=== PATIENT | male | born 1955 | race Caucasian/White ===

== ENCOUNTER 2018-01-30 08:56 | Outpatient (CLI) | payer OTHER, SELFPAY ==
[2018-02-03 12:11] LABS: BCR/ABL1, p210 Result see interpretation; Specimen Type WHOLE BLOOD
== END 2018-01-30 09:16 ==
PROVIDERS: PCP Family Medicine; Visit Provider Internal Medicine Hematology & Oncology
DX: C92.10 Chronic myeloid leukemia, BCR/ABL-positive, not having achieved remission (principal)
CPT/HCPCS: 36415; 81206

== ENCOUNTER 2018-04-15 09:23 | Outpatient (CLI) | payer OTHER, SELFPAY ==
[2018-04-15 10:00] LABS: Abs Immature Grans 0.02 k/cumm (0.0-0.09); Absolute Basophil Count 0.03 k/cumm (0.0-0.2); Absolute Eosinophil Count 0.32 k/cumm (0.0-0.7); Absolute Lymphocyte Count 2.37 k/cumm (1.2-3.4); Absolute Monocyte Count 0.69 k/cumm (0.11-0.7); Absolute Neutrophil Count 6.03 k/cumm (1.2-6.7); Basophils % 0.3; Eosinophils % 3.4; HCT 42.1 % (40.0-50.0); HGB 14.4 g/dL (13.5-17.5); Immature Grans % 0.2; Lymphocytes % 25.1; Mean Corp. HGB Concentration 34.2 g/dL (32.0-36.0); Mean Corpuscular Hemoglobin 32.5 pg (27.0-33.0); Mean Platelet Volume 9.4 fL (8.0-11.0); Monocytes % 7.3; Neutrophils % 63.7; Platelet Count 163 x1000/uL (130-400); RBC 4.43 m/cumm (4.50-6.00); RBC Distribution Width 13.7 % (11.8-14.1); White Blood Cell Count 9.46 k/cumm (4.4-10.8)
[2018-04-15 10:34] LABS: ALT 28 U/L (12-78); AST 18 U/L (15-37); Albumin 3.4 g/dL (3.4-5.0); Alkaline Phosphatase 53 U/L (46-116); Anion Gap 8.7 mmol/L (3-11); BUN 18 mg/dL (7-18); Bilirubin, Total 0.7 mg/dL (0.2-1.0); CO2 25.3 mmol/L (21.0-32.0); CREATININE 1.35 mg/dL (0.70-1.30); Calcium 8.4 mg/dL (8.5-10.1); Chloride 106 mmol/L (98-107); Estimated GFR 53.21 (mL/min/1.73m2); Glucose 94 mg/dL (70-100); Potassium 4.2 mmol/L (3.5-5.1); Sodium 140 mmol/L (136-145)
[2018-04-15 11:51] LABS: Cholesterol 110 mg/dL (50-200); HDL Cholesterol 30 mg/dL (40-60); LDL CHOLESTEROL 59 mg/dL (<100); Triglyceride 127 mg/dL (30-150)
[2018-04-15 20:34] LABS: CRP, High Sensitivity 3.23 mg/L
[2018-05-13 10:54] LABS: Indication for Study See Comments
[2018-05-13 10:55] LABS: Specimen Type Peripheral blood
[2018-05-13 10:56] LABS: BCR-ABL1 p210 FusionTranscript See Comments
[2018-05-13 11:00] LABS: BCR-ABL1 Interpretation See Comments
== END 2018-04-15 09:43 ==
PROVIDERS: PCP Family Medicine; Visit Provider Internal Medicine Hematology & Oncology
DX: C92.10 Chronic myeloid leukemia, BCR/ABL-positive, not having achieved remission (principal); Z13.6 Encounter for screening for cardiovascular disorders
CPT/HCPCS: 36415; 80053; 80061; 81206; 83721; 86141; 85025

== ENCOUNTER 2018-08-19 13:28 | Outpatient (CLI) | payer OTHER, SELFPAY ==
[2018-08-19 13:53] LABS: Abs Immature Grans 0.02 k/cumm (0.0-0.09); Absolute Basophil Count 0.02 k/cumm (0.0-0.2); Absolute Eosinophil Count 0.29 k/cumm (0.0-0.7); Absolute Lymphocyte Count 1.74 k/cumm (1.2-3.4); Absolute Monocyte Count 0.53 k/cumm (0.11-0.7); Absolute Neutrophil Count 4.71 k/cumm (1.2-6.7); Basophils % 0.3; HCT 39.4 % (40.0-50.0); HGB 13.7 g/dL (13.5-17.5); Immature Grans % 0.3; Lymphocytes % 23.8; Mean Corp. HGB Concentration 34.8 g/dL (32.0-36.0); Mean Corpuscular Volume 94.9 fL (80-95); Mean Platelet Volume 9.3 fL (8.0-11.0); Monocytes % 7.3; Neutrophils % 64.3; Platelet Count 185 x1000/uL (130-400); RBC 4.15 m/cumm (4.50-6.00); RBC Distribution Width 14.4 % (11.8-14.1); White Blood Cell Count 7.31 k/cumm (4.4-10.8)
[2018-08-19 14:10] LABS: ALT 20 U/L (12-78); AST 17 U/L (15-37); Albumin 3.5 g/dL (3.4-5.0); Alkaline Phosphatase 55 U/L (46-116); Anion Gap 10.5 mmol/L (3-11); BUN 16 mg/dL (7-18); Bilirubin, Total 0.6 mg/dL (0.2-1.0); CO2 23.5 mmol/L (21.0-32.0); CREATININE 1.21 mg/dL (0.70-1.30); Calcium 8.8 mg/dL (8.5-10.1); Chloride 107 mmol/L (98-107); Glucose 90 mg/dL (70-100); Potassium 3.9 mmol/L (3.5-5.1); Sodium 141 mmol/L (136-145); Total Protein 6.9 g/dL (6.4-8.2)
[2018-08-28 14:40] LABS: Indication for Study See Comments
[2018-08-28 14:41] LABS: Specimen Type Peripheral blood
[2018-08-28 14:42] LABS: Limitations and Disclaimers See Comments
[2018-08-28 14:43] LABS: BCR-ABL1 p210 FusionTranscript See Comments
[2018-08-28 14:47] LABS: BCR-ABL1 Interpretation See Comments
== END 2018-08-19 13:48 ==
PROVIDERS: PCP Family Medicine; Visit Provider Nurse Practitioner Family
DX: C92.10 Chronic myeloid leukemia, BCR/ABL-positive, not having achieved remission (principal)
CPT/HCPCS: 36415; 80053; 81206; 85025

== ENCOUNTER 2018-12-07 13:00 | Outpatient (CLI) | payer OTHER, SELFPAY ==
[2018-12-07 13:27] LABS: Abs Immature Grans 0.07 k/cumm (0.0-0.09); Absolute Basophil Count 0.02 k/cumm (0.0-0.2); Absolute Eosinophil Count 0.33 k/cumm (0.0-0.7); Absolute Lymphocyte Count 2.12 k/cumm (1.2-3.4); Absolute Monocyte Count 0.82 k/cumm (0.11-0.7); Basophils % 0.2; Eosinophils % 2.9; HGB 13.8 g/dL (13.5-17.5); Immature Grans % 0.6; Lymphocytes % 18.7; Mean Corp. HGB Concentration 33.7 g/dL (32.0-36.0); Mean Corpuscular Hemoglobin 32.7 pg (27.0-33.0); Mean Corpuscular Volume 97.2 fL (80-95); Mean Platelet Volume 8.8 fL (8.0-11.0); Monocytes % 7.2; Neutrophils % 70.4; Platelet Count 212 x1000/uL (130-400); RBC 4.22 m/cumm (4.50-6.00); RBC Distribution Width 13.5 % (11.8-14.1); White Blood Cell Count 11.32 k/cumm (4.4-10.8)
[2018-12-07 13:34] LABS: Absolute Neutrophil Count 7.97 k/cumm (1.2-6.7)
[2018-12-07 14:59] LABS: ALT 18 U/L (16-63); AST 13 U/L (15-37); Albumin 3.3 g/dL (3.4-5.0); Alkaline Phosphatase 65 U/L (46-116); Anion Gap 12.7 mmol/L (3-11); BUN 15 mg/dL (7-18); Bilirubin, Total 0.4 mg/dL (0.2-1.0); CO2 24.3 mmol/L (21.0-32.0); Calcium 8.3 mg/dL (8.5-10.1); Chloride 105 mmol/L (98-107); Estimated GFR 46.97 (mL/min/1.73m2); Glucose 121 mg/dL (70-100); Potassium 3.8 mmol/L (3.5-5.1); Sodium 142 mmol/L (136-145); Total Protein 6.9 g/dL (6.4-8.2)
[2018-12-23 10:16] LABS: Indication for Study See Comments
[2018-12-23 10:17] LABS: Specimen Type Peripheral blood
[2018-12-23 10:19] LABS: BCR-ABL1 p210 FusionTranscript See Comments
[2018-12-23 10:26] LABS: BCR-ABL1 Interpretation See Comments
[2018-12-23 10:29] LABS: Limitations and Disclaimers See Comments
== END 2018-12-07 13:20 ==
PROVIDERS: PCP Family Medicine; Visit Provider Internal Medicine Hematology & Oncology
DX: C92.10 Chronic myeloid leukemia, BCR/ABL-positive, not having achieved remission (principal)
CPT/HCPCS: 36415; 80053; 81206; 85025

== ENCOUNTER 2019-05-17 10:37 | Outpatient (CLI) | payer OTHER, SELFPAY ==
[2019-05-17 11:34] LABS: Abs Immature Grans 0.06 k/cumm (0.0-0.09); Absolute Basophil Count 0.02 k/cumm (0.0-0.2); Absolute Eosinophil Count 0.29 k/cumm (0.0-0.7); Absolute Lymphocyte Count 1.51 k/cumm (1.2-3.4); Absolute Monocyte Count 1.07 k/cumm (0.11-0.7); Absolute Neutrophil Count 6.64 k/cumm (1.2-6.7); Basophils % 0.2; HCT 39.4 % (40.0-50.0); HGB 13.7 g/dL (13.5-17.5); Immature Grans % 0.6 %; Lymphocytes % 15.7; Mean Corp. HGB Concentration 34.8 g/dL (32.0-36.0); Mean Corpuscular Hemoglobin 33.4 pg (27.0-33.0); Mean Corpuscular Volume 96.1 fL (80-95); Mean Platelet Volume 9.5 fL (8.0-11.0); Monocytes % 11.2; Neutrophils % 69.3; Platelet Count 216 x1000/uL (130-400); RBC Distribution Width 13.6 % (11.8-14.1); White Blood Cell Count 9.59 k/cumm (4.4-10.8)
[2019-05-17 12:15] LABS: ALT 23 U/L (16-63); AST 14 U/L (15-37); Albumin 3.5 g/dL (3.4-5.0); Alkaline Phosphatase 59 U/L (46-116); Anion Gap 8.2 mmol/L (3-11); BUN 19 mg/dL (7-18); Bilirubin, Total 0.6 mg/dL (0.2-1.0); CO2 25.8 mmol/L (21.0-32.0); Calcium 8.7 mg/dL (8.5-10.1); Chloride 108 mmol/L (98-107); Glucose 92 mg/dL (74-106); Potassium 4.5 mmol/L (3.5-5.1); Sodium 142 mmol/L (136-145); Total Protein 6.7 g/dL (6.4-8.2)
[2019-06-03 10:16] LABS: Indication for Study See Comments; Specimen Type Peripheral blood
[2019-06-03 10:19] LABS: BCR-ABL1 Interpretation See Comments; BCR-ABL1 p210 FusionTranscript See Comments
[2019-06-03 10:21] LABS: Limitations and Disclaimers See Comments
== END 2019-05-17 10:57 ==
PROVIDERS: PCP Family Medicine; Visit Provider Internal Medicine Hematology & Oncology
DX: C92.10 Chronic myeloid leukemia, BCR/ABL-positive, not having achieved remission (principal)
CPT/HCPCS: 36415; 80053; 81206; 85025

== ENCOUNTER 2019-10-19 03:34 | Outpatient (CLI) | payer OTHER, SELFPAY ==
[2019-10-19 09:08] LABS: Abs Immature Grans 0.05 k/cumm (0.0-0.09); Absolute Basophil Count 0.02 k/cumm (0.0-0.2); Absolute Eosinophil Count 0.34 k/cumm (0.0-0.7); Absolute Lymphocyte Count 1.87 k/cumm (1.2-3.4); Absolute Monocyte Count 0.64 k/cumm (0.11-0.7); Absolute Neutrophil Count 4.34 k/cumm (1.2-6.7); Basophils % 0.3; Eosinophils % 4.7; HCT 40.8 % (40.0-50.0); HGB 14.2 g/dL (13.5-17.5); Immature Grans % 0.7 %; Lymphocytes % 25.8; Mean Corp. HGB Concentration 34.8 g/dL (32.0-36.0); Mean Corpuscular Hemoglobin 32.9 pg (27.0-33.0); Mean Corpuscular Volume 94.7 fL (80-95); Mean Platelet Volume 9.4 fL (8.0-11.0); Monocytes % 8.8; Neutrophils % 59.7; Platelet Count 198 x1000/uL (130-400); RBC 4.31 m/cumm (4.50-6.00); RBC Distribution Width 13.5 % (11.8-14.1); White Blood Cell Count 7.26 k/cumm (4.4-10.8)
[2019-10-19 09:29] LABS: ALT 30 U/L (16-63); AST 17 U/L (15-37); Albumin 3.5 g/dL (3.4-5.0); Alkaline Phosphatase 57 U/L (46-116); Anion Gap 9.4 mmol/L (3-11); BUN 17 mg/dL (7-18); Bilirubin, Total 0.5 mg/dL (0.2-1.0); CO2 23.6 mmol/L (21.0-32.0); CREATININE 1.25 mg/dL (0.70-1.30); Chloride 109 mmol/L (98-107); Estimated GFR 57.79 (mL/min/1.73m2); Glucose 101 mg/dL (74-106); Sodium 142 mmol/L (136-145); Total Protein 7.3 g/dL (6.4-8.2)
[2019-10-28 11:31] LABS: Indication for Study CML
[2019-10-28 11:32] LABS: Limitations and Disclaimers See Comments; Specimen Type Peripheral blood
[2019-10-28 11:33] LABS: BCR-ABL1 p210 FusionTranscript See Comments
[2019-10-28 11:35] LABS: BCR-ABL1 Interpretation See Comments
== END 2019-10-19 03:54 ==
PROVIDERS: PCP Family Medicine; Visit Provider Internal Medicine Hematology & Oncology
DX: C92.10 Chronic myeloid leukemia, BCR/ABL-positive, not having achieved remission (principal)
CPT/HCPCS: 36415; 80053; 81206; 85025

== ENCOUNTER 2020-03-01 15:21 | Outpatient (CLI) | payer OTHER, SELFPAY ==
[2020-03-01 15:50] LABS: Abs Immature Grans 0.04 10^3/uL (0.0-0.06); Absolute Basophil Count 0.04 10^3/uL (0.0-0.2); Absolute Eosinophil Count 0.26 10^3/uL (0.0-0.7); Absolute Lymphocyte Count 1.25 10^3/uL (1.2-3.4); Absolute Monocyte Count 0.69 10^3/uL (0.1-0.8); Absolute Neutrophil Count 4.76 10^3/uL (1.2-6.7); Basophils % 0.6; Eosinophils % 3.7; HCT 39.5 % (40.0-50.0); HGB 13.3 g/dL (13.5-17.5); Immature Grans % 0.6; Lymphocytes % 17.8; MCHC 33.7 % (32.0-36.0); MCV 95.2 fL (80-95); MPV 9.9 fL (8.0-11.0); Monocytes % 9.8; Neutrophils % 67.5; Nucleated RBC 0 %; Platelet Count 195 10^3/uL (130-400); RBC 4.15 10^6/uL (4.36-5.78); RDW-SD 45.1 fL; WBC 7.04 10^3/uL (4.4-10.8)
[2020-03-01 16:02] LABS: ALT 24 U/L (16-63); AST 14 U/L (15-37); Albumin 3.5 g/dL (3.4-5.0); Alkaline Phosphatase 58 U/L (46-116); BUN 15 mg/dL (7-18); Bilirubin, Total 0.6 mg/dL (0.2-1.0); CREATININE 1.44 mg/dL (0.70-1.30); Calcium 8.3 mg/dL (8.5-10.1); Chloride 107 mmol/L (98-107); Estimated GFR 49.08 (mL/min/1.73m2); Glucose 88 mg/dL (74-106); Potassium 3.8 mmol/L (3.5-5.1); Sodium 140 mmol/L (136-145)
[2020-03-08 11:24] LABS: Indication for Study See Comments
[2020-03-08 11:25] LABS: BCR-ABL1 p210 FusionTranscript See Comments; Specimen Type Peripheral blood
[2020-03-08 11:30] LABS: BCR-ABL1 Interpretation See Comments; Limitations and Disclaimers See Comments
== END 2020-03-01 15:41 ==
PROVIDERS: PCP Family Medicine; Visit Provider Internal Medicine Hematology & Oncology
DX: C92.10 Chronic myeloid leukemia, BCR/ABL-positive, not having achieved remission (principal)
CPT/HCPCS: 36415; 80053; 81206; 85025

== ENCOUNTER 2021-01-01 01:54 | Outpatient (CLI) | payer MEDICARE, SELFPAY ==
[2021-01-01 07:59] LABS: Abs Immature Grans 0.05 10^3/uL (0.0-0.06); Absolute Basophil Count 0.05 10^3/uL (0.0-0.2); Absolute Eosinophil Count 0.26 10^3/uL (0.0-0.7); Absolute Lymphocyte Count 1.67 10^3/uL (1.2-3.4); Absolute Monocyte Count 0.59 10^3/uL (0.1-0.8); Absolute Neutrophil Count 6.45 10^3/uL (1.2-6.7); Basophils % 0.6; Eosinophils % 2.9; HCT 44.9 % (40.0-50.0); HGB 14.9 g/dL (13.5-17.5); Immature Grans % 0.6; Lymphocytes % 18.4; MCHC 33.2 % (32.0-36.0); MCV 96.4 fL (80-95); MPV 9.4 fL (8.0-11.0); Monocytes % 6.5; Nucleated RBC 0 %; Platelet Count 180 10^3/uL (130-400); RBC 4.66 10^6/uL (4.36-5.78); WBC 9.07 10^3/uL (4.4-10.8)
[2021-01-01 08:21] LABS: ALT 23 U/L (16-63); AST 14 U/L (15-37); Albumin 3.5 g/dL (3.4-5.0); Alkaline Phosphatase 59 U/L (46-116); Anion Gap 7.1 mmol/L (3-11); BUN 15 mg/dL (7-18); Bilirubin, Total 0.6 mg/dL (0.2-1.0); CO2 28.9 mmol/L (21.0-32.0); CREATININE 1.4 mg/dL (0.70-1.30); Calcium 8.6 mg/dL (8.5-10.1); Chloride 108 mmol/L (98-107); Estimated GFR 50.55 (mL/min/1.73m2); Glucose 118 mg/dL (74-106); Potassium 3.8 mmol/L (3.5-5.1); Sodium 144 mmol/L (136-145)
[2021-01-17 15:03] LABS: Indication for Study CML
[2021-01-17 15:04] LABS: BCR-ABL1 p210 FusionTranscript See Comments; Limitations and Disclaimers See Comments
[2021-01-17 15:05] LABS: BCR-ABL1 Interpretation See Comments
== END 2021-01-01 01:55 | disposition home or self-care (01) ==
LOC: LBO 01:54
PROVIDERS: PCP Family Medicine; Visit Provider Internal Medicine Hematology & Oncology
DX: C92.10 Chronic myeloid leukemia, BCR/ABL-positive, not having achieved remission (principal)
CPT/HCPCS: 36415; 80053; 81206; 85025

== ENCOUNTER 2021-01-18 01:44 | Outpatient (RCR) | payer MEDICARE, SELFPAY ==
[2021-01-03] MEDS: Loratidine 10 MG TAB PO (09:06)
[2021-01-03] MEDS: Normal Saline Flush 10 ML SYR IVP (09:08)
[2021-01-03] MEDS: Acetaminophen 325 MG TAB 650 MG PO (09:08)
[2021-01-03] MEDS: VEDOLIZUMAB 300 MG in Normal Saline 250 ML 500 MG IVPB (09:28)
[2021-01-18 08:57] LABS: HCT 44.1 % (40.0-50.0); HGB 14.7 g/dL (13.5-17.5); MCH 31.4 pg (27.0-33.0); MCHC 33.3 % (32.0-36.0); MCV 94.2 fL (80-95); MPV 10.1 fL (8.0-11.0); Platelet Count 202 10^3/uL (130-400); RBC 4.68 10^6/uL (4.36-5.78); RDW 12.9 % (11.8-14.1); RDW-SD 44.1 fL; WBC 9.78 10^3/uL (4.4-10.8)
[2021-01-18 09:10] LABS: ALT 22 U/L (16-63); AST 20 U/L (15-37); Albumin 3.5 g/dL (3.4-5.0); Alkaline Phosphatase 59 U/L (46-116); Bilirubin, Direct 0.2 mg/dL (0.0-0.2); Bilirubin, Total 0.7 mg/dL (0.2-1.0); C-Reactive Protein 0.11 mg/dL (0.0-0.3); Total Protein 7.1 g/dL (6.4-8.2)
[2021-01-18] MEDS: Normal Saline Flush 10 ML SYR IVP (09:17)
[2021-01-18] MEDS: VEDOLIZUMAB 300 MG in Normal Saline 250 ML 500 MG IVPB (09:17)
== END 2021-01-21 23:59 | disposition home or self-care (01) ==
LOC: INF 01:44
PROVIDERS: PCP Family Medicine; Visit Provider Internal Medicine
DX: K50.90 Crohn's disease, unspecified, without complications (principal)
CPT/HCPCS: 36415; 80076; 85027; 96365; 86140; J3380

== ENCOUNTER 2021-02-14 02:15 | Outpatient (RCR) | payer MEDICARE, SELFPAY ==
[2021-02-14] MEDS: VEDOLIZUMAB 300 MG in Normal Saline 250 ML 500 MG IVPB (11:05)
[2021-02-14] MEDS: Normal Saline Flush 10 ML SYR IVP (11:50)
== END 2021-02-20 23:59 | disposition home or self-care (01) ==
LOC: INF 02:15
PROVIDERS: PCP Family Medicine; Visit Provider Internal Medicine
DX: K50.90 Crohn's disease, unspecified, without complications (principal); Z79.899 Other long term (current) drug therapy
CPT/HCPCS: 96365; J3380

== ENCOUNTER 2021-02-28 01:25 | Outpatient (RCR) | payer MEDICARE, SELFPAY ==
[2021-02-28 08:40] LABS: Abs Immature Grans 0.02 10^3/uL (0.0-0.06); Absolute Basophil Count 0.04 10^3/uL (0.0-0.2); Absolute Eosinophil Count 0.27 10^3/uL (0.0-0.7); Absolute Lymphocyte Count 1.43 10^3/uL (1.2-3.4); Absolute Monocyte Count 0.63 10^3/uL (0.1-0.8); Absolute Neutrophil Count 5.26 10^3/uL (1.2-6.7); Basophils % 0.5; Eosinophils % 3.5; HCT 44.6 % (40.0-50.0); HGB 14.8 g/dL (13.5-17.5); Immature Grans % 0.3; Lymphocytes % 18.7; MCH 31.4 pg (27.0-33.0); MCHC 33.2 % (32.0-36.0); MCV 94.7 fL (80-95); MPV 10.3 fL (8.0-11.0); Monocytes % 8.2; Neutrophils % 68.8; Nucleated RBC 0 %; Platelet Count 181 10^3/uL (130-400); RBC 4.71 10^6/uL (4.36-5.78); RDW-SD 45.4 fL; WBC 7.65 10^3/uL (4.4-10.8)
[2021-02-28 08:57] LABS: ALT 17 U/L (16-63); AST 19 U/L (15-37); Albumin 3.3 g/dL (3.4-5.0); Alkaline Phosphatase 53 U/L (46-116); Anion Gap 8.5 mmol/L (3-11); BUN 14 mg/dL (7-18); Bilirubin, Total 0.6 mg/dL (0.2-1.0); CO2 23.5 mmol/L (21.0-32.0); CREATININE 1.1 mg/dL (0.70-1.30); Calcium 8.5 mg/dL (8.5-10.1); Chloride 108 mmol/L (98-107); Glucose 103 mg/dL (74-106); Sodium 140 mmol/L (136-145); Total Protein 6.9 g/dL (6.4-8.2)
[2021-03-20 09:13] LABS: Indication for Study CML
[2021-03-20 09:16] LABS: Specimen Type Peripheral blood
[2021-03-20 09:19] LABS: BCR-ABL1 p210 FusionTranscript Negative
[2021-03-20 09:22] LABS: BCR-ABL1 Interpretation See Comments
[2021-03-20 09:24] LABS: Limitations and Disclaimers See Comments
== END 2021-03-23 23:59 | disposition home or self-care (01) ==
LOC: INF 01:25
PROVIDERS: PCP Family Medicine; Visit Provider Internal Medicine Hematology & Oncology
DX: C92.10 Chronic myeloid leukemia, BCR/ABL-positive, not having achieved remission (principal)
CPT/HCPCS: 36415; 80053; 81206; 85025

== ENCOUNTER 2021-04-06 07:30 | Outpatient (RCR) | payer MEDICARE, SELFPAY ==
[2021-04-06] MEDS: Normal Saline Flush 10 ML SYR IVP (07:37)
[2021-04-06 07:44] LABS: HCT 42.3 % (40.0-50.0); HGB 14.3 g/dL (13.5-17.5); MCH 31.7 pg (27.0-33.0); MCHC 33.8 % (32.0-36.0); MCV 93.8 fL (80-95); MPV 9.8 fL (8.0-11.0); Platelet Count 178 10^3/uL (130-400); RBC 4.51 10^6/uL (4.36-5.78); RDW-SD 44.5 fL; WBC 7.42 10^3/uL (4.4-10.8)
[2021-04-06 07:58] LABS: ALT 18 U/L (16-63); AST 15 U/L (15-37); Albumin 3.4 g/dL (3.4-5.0); Alkaline Phosphatase 54 U/L (46-116); Bilirubin, Direct 0.1 mg/dL (0.0-0.2); Bilirubin, Total 0.6 mg/dL (0.2-1.0); C-Reactive Protein 0.11 mg/dL (0.0-0.3); Total Protein 6.9 g/dL (6.4-8.2)
[2021-04-06] MEDS: VEDOLIZUMAB 300 MG in Normal Saline 250 ML 500 MG IVPB (08:08)
== END 2021-04-23 23:59 | disposition home or self-care (01) ==
LOC: INF 07:30
PROVIDERS: Family Medicine; PCP Family Medicine; Visit Provider Internal Medicine
DX: K50.90 Crohn's disease, unspecified, without complications (principal)
CPT/HCPCS: 36415; 80076; 85027; 96365; 86140; J3380

== ENCOUNTER 2021-05-01 02:06 | Outpatient (CLI) | payer MEDICARE, SELFPAY ==
[2021-05-01 08:05] LABS: Abs Immature Grans 0.03 10^3/uL (0.0-0.06); Absolute Basophil Count 0.03 10^3/uL (0.0-0.2); Absolute Eosinophil Count 0.29 10^3/uL (0.0-0.7); Absolute Lymphocyte Count 1.73 10^3/uL (1.2-3.4); Absolute Monocyte Count 0.71 10^3/uL (0.1-0.8); Absolute Neutrophil Count 5.05 10^3/uL (1.2-6.7); Basophils % 0.4; Eosinophils % 3.7; HCT 44.2 % (40.0-50.0); HGB 14.6 g/dL (13.5-17.5); Immature Grans % 0.4; Lymphocytes % 22.1; MCH 31.4 pg (27.0-33.0); MCV 95.1 fL (80-95); MPV 9.6 fL (8.0-11.0); Monocytes % 9.1; Neutrophils % 64.3; Nucleated RBC 0 %; Platelet Count 169 10^3/uL (130-400); RBC 4.65 10^6/uL (4.36-5.78); RDW 12.8 % (11.8-14.1); RDW-SD 44.3 fL; WBC 7.84 10^3/uL (4.4-10.8)
[2021-05-21 10:40] LABS: Indication for Study CML
[2021-05-21 10:43] LABS: BCR-ABL1 p210 FusionTranscript See Comments
[2021-05-21 10:44] LABS: BCR-ABL1 Interpretation See Comments; Limitations and Disclaimers See Comments
== END 2021-05-01 02:07 | disposition home or self-care (01) ==
LOC: LBO 02:07
PROVIDERS: PCP Family Medicine; Visit Provider Internal Medicine Hematology & Oncology
DX: C92.10 Chronic myeloid leukemia, BCR/ABL-positive, not having achieved remission (principal)
CPT/HCPCS: 36415; 81206; 85025

== ENCOUNTER 2021-06-01 03:17 | Outpatient (RCR) | payer MEDICARE, SELFPAY ==
[2021-06-01] MEDS: Loratidine 10 MG TAB (07:55)
[2021-06-01] MEDS: Normal Saline Flush 10 ML SYR IVP (07:56)
[2021-06-01] MEDS: Acetaminophen 325 MG TAB (07:56)
[2021-06-01] MEDS: VEDOLIZUMAB 300 MG in Normal Saline 250 ML 500 MG IVPB (08:41)
== END 2021-06-21 23:59 | disposition home or self-care (01) ==
LOC: INF 03:17
PROVIDERS: PCP Family Medicine; Visit Provider Internal Medicine
DX: K50.90 Crohn's disease, unspecified, without complications (principal)
CPT/HCPCS: 96365; J3380

== ENCOUNTER 2021-07-02 02:43 | Outpatient (CLI) | payer MEDICARE, SELFPAY ==
[2021-07-02 15:22] LABS: Abs Immature Grans 0.04 10^3/uL (0.0-0.06); Absolute Basophil Count 0.03 10^3/uL (0.0-0.2); Absolute Eosinophil Count 0.19 10^3/uL (0.0-0.7); Absolute Lymphocyte Count 1.61 10^3/uL (1.2-3.4); Absolute Monocyte Count 0.77 10^3/uL (0.1-0.8); Basophils % 0.3; Eosinophils % 2.1; HCT 39.9 % (40.0-50.0); HGB 13.4 g/dL (13.5-17.5); Immature Grans % 0.4; Lymphocytes % 17.8; MCH 32.2 pg (27.0-33.0); MCHC 33.6 % (32.0-36.0); MCV 95.9 fL (80-95); MPV 9.7 fL (8.0-11.0); Monocytes % 8.5; Neutrophils % 70.9; Nucleated RBC 0 %; Platelet Count 173 10^3/uL (130-400); RBC 4.16 10^6/uL (4.36-5.78); RDW 12.9 % (11.8-14.1); RDW-SD 45.2 fL; WBC 9.04 10^3/uL (4.4-10.8)
== END 2021-07-02 02:44 | disposition home or self-care (01) ==
LOC: LBO 02:43
PROVIDERS: PCP Family Medicine; Visit Provider Internal Medicine Hematology & Oncology
CPT/HCPCS: 36415; 81206; 85025

== ENCOUNTER 2021-07-20 01:46 | Outpatient (CLI) | payer MEDICARE, SELFPAY | END 2021-07-20 01:47 | disposition home or self-care (01) | LOC: LBO 01:46 | PROVIDERS: PCP Family Medicine; Visit Provider Internal Medicine Hematology & Oncology | CPT/HCPCS: 81206 ==

== ENCOUNTER 2021-07-24 02:04 | Outpatient (CLI) | payer MEDICARE, SELFPAY ==
--- OUTSIDE RECORDS SUMMARY | 2021-07-24 02:05 | XMS_ITS ---
:1955 Author Care Team Providers Name Role Phone RENE MACK MD Primary Care Provider [phone] Allergies Code Code System Name Reaction Severity Status Onset 671548 RxNorm Levaquin Itching ? Active ? 04566 RxNorm Mesalamine ? ? Active ? Notes: 01/02/21 verbal review Medications Name Status Start Date Stop Date ? ? acetaminophen 325 mg tablet Completed 03/15/201102/22 2 (two) Tablet: every four hours, as needed Aleve 220 mg tablet Completed 03/15/2011 04/01/2014 3 (three) Tablet: as needed allopurinol 300 mg tablet Completed 03/12/20162016 1 (one) Tablet Tablet: daily Ambien CR 12.5 mg tablet,extended release Completed 200509/23/2005 1 (one) Tablet ER: at bedtime amoxicillin 500 mg capsule Completed ? 03/05 amoxicillin 500 mg tablet Completed ? 2018 Take 4 tablets as needed by oral route. amoxicillin 875 mg tablet Completed ? 2017 amoxicillin 875 mg-potassium Completed ? clavulanate 125 mg tablet aspirin 81 mg tablet,delayed release Completed 03/20/2016 12/03/2016 1 (one) Tablet: once daily Aspirin Childrens 81 mg chewable tablet Completed 05/28/19 09 05/27/2008 1 (one) Tablet Chewable: daily ciprofloxacin 500 mg tablet Completed 09/04/201108/23 1 (one) Tablet: two times daily Flagyl 500 mg tablet Completed 09/04/2011 09/14/2011 1 Tablet: every 8 hours glucosamine jeff dipot-chond jeff sod-C-Mn 500 mg-400 mg-66 mg-3 mg cap Completed 11/13/2009 11/13/2009 1 (one) Capsule: daily hydrocodone 5 mg-acetaminophen 325 mg tablet Completed ? 01/02/2021 TAKE ONE TABLET BY MOUTH THREE TIMES A DAY NEEDED Kenalog 10 mg/mL suspension Completed 11/09/200710/22 for injection Lamisil 250 mg tablet Completed 10/30/2010 10/30/2010 1 (one) Tablet: daily Levaquin 750 mg tablet Completed 11/17/2007 8 1 (one) Tablet: Daily Lialda 1.2 gram tablet,delayed release Completed 0 03/09/[address]: daily with supper losartan 50 mg tablet Active ? Not availa ble TAKE ONE TABLET BY MOUTH EVERY DAY mercaptopurine 50 mg tablet Completed 09/04/201108/22 2 (two) Tablet: daily multivitamin capsule Completed 11/13/2009 11/13/2009 1 (one) Capsule: daily Nexium 40 mg capsule,delayed release Completed 11/01/2010 04/01/2014 1 (one) Cap DR: daily as needed ondansetron HCl 8 mg tablet Completed 12/04/201111/22 1 Tablet: every 8 hours oxycodone 5 mg tablet Completed ? 03/13/2020 pantoprazole 40 mg tablet,delayed release Unknown 2008 Not available 1 (one) Tablet DR: Daily to suppress acid Pentasa 250 mg capsule,controlled release Completed 200711/09/2007 4 Capsule ER: four times per day Plaquenil 200 mg tablet Unknown 06/01/2007 Not avai lable 1 (one) Tablet: Twice daily pravastatin 20 mg tablet Active ? Not sweta ilable TAKE ONE TABLET BY MOUTH EVERY DAY prednisone 10 mg tablet Completed 09/04/2011 09/14/19 12 1 (one) Tablet: See comments Sprycel 100 mg tablet Active ? Not availa ble Sprycel 140 mg tablet Active ? Not availa ble tamsulosin 0.4 mg capsule Completed ? 2020 TAKE ONE CAPSULE BY MOUTH EVERY DAY triamcinolone acetonide 0.1 % topical cream Active ? Not available APPLY A THIN LAYER TOPICALLY TO AFFECTED AREA S TWO TIMES A DA Y WelChol 3.75 gram oral powder packet Completed 08/08/2014 03/15/2015 1 (one) Packet Packet: DAILY MIXED IN LIQUID Zithromax Z-Srinivasan 250 mg tablet Completed 04/01/2014 1 Tablet: As directed Notes: 01/02/21 verbal review Problems Name Status Onset Date Source ? Chronic Myeloid Leukemia Active ? History Obesity Active ? History Leukocytosis Unknown ? History Psychophysiologic Insomnia Active ? Histo ry Thoracic Aortic Aneurysm without Rupture Active ? History Umbilical Hernia without Obstruction and Active ? History without Gangrene Crohn's Disease Active ? History Seborrheic Dermatitis of Scalp Unknown ? H istory Discoid Lupus Erythematosus Active ? Hist ory Abdominal Pain Unknown ? History Adult Health Examination Active ? History Screening for Cardiovascular System Disease Active ? History Screening Procedure Unknown ? History Procedure by Method Unknown ? History Inflammatory Disorder of Digestive Tract Unknown ? History Procedures Date Name Performed by ? 11/09/2020 Colonoscopy Information not avai lable 02/15/2008 Cholecystectomy Information not avai lable Notes: Laparoscopic ? Vasectomy Information not avai lable 03/23/2018 CT, Heart, W/o Contrast, W/ Coronary Dhm c [place] [address] (Work Place) 10/03/2020 XR, Abdomen [facility] Hospit al Radiology (Internal) [address] [place] [address] (Work Place) Results Lab Results Date Name Specimen Result Interpretation Description Value Range Status Address ? 10/03/2020 CBC W/ Auto BLD ? Wbc 7.2 10*3/uL 5.0-10.0 F inal [facility] Diff 10*3/uL Hospital Lab (Internal) : [address] ? ? BLD Low Rbc 4.45 4.60-6.00 Final [facility] ountry 10*6/uL 10*6/uL Hospital Lab (Internal) : [address] ? ? BLD ? Hgb 14.4 g/dL 14.0-18.0 Final [facility] g/dL Hospital L ab (Internal) : [address] ? ? BLD ? Hct 42.9 % 41.0-51.0 Final [facility] ount % Hospital L ab (Internal) : [address] ? ? BLD High Mcv 96.4 fL 80.0-96.0 Final [facility] fL Hospital L ab (Internal) : [address] ? ? BLD High Mch 32.4 pg 26.0-32.0 Final [facility] pg Hospital L ab (Internal) : [address] ? ? BLD ? Mchc 33.6 g/dL 31.0-35.0 Final [facility] Country g/dL Hospital L ab (Internal) : [address] ? ? BLD ? Rdw 12.9 % 11.5-14.5 Final [facility] % Hospital L ab (Internal) : [address] ? ? BLD ? Plt 208 10*3/uL 130-450 Final [facility] Country 10*3/uL Hospital Lab (Internal) : [address] ? ? BLD ? Anc 5.01 ? Final [facility] try 10*3/uL Hospital Lab (Internal) : [address] ? ? BLD High Nlr 3.85 0.00-3.20 Final [facility] Hospital L ab (Internal) : [address] ? ? BLD ? Neutro 69.8 % 40.0-75.0 Final [facility] % Hospital L ab (Internal) : [address] ? ? BLD Low Lymph 18.1 % 20.0-50.0 Final [facility] % Hospital L ab (Internal) : [address] ? ? BLD ? Webb 8.1 % 2.0-10.0 Final [facility] % Hospital L ab (Internal) : [address] ? ? BLD ? Eos 2.8 % 1.0-6.0 % Final [facility] Hospital L ab (Internal) : [address] ? ? BLD ? Baso 0.6 % 0.0-1.0 % Final [facility] Hospital L ab (Internal) : [address] ? ? BLD ? Ig 0.6 % 0.0-0.9 % Final [facility] L ab (Internal) : [address] 10/03/2020 CMP, Serum S ? g/r 103 mg/dL 74-106 Final [facility] or Plasma mg/dL Hospita l Lab (Internal) : [address] ? ? S ? Bun 19 mg/dL 9-20 Final [place] mg/dL Hospital L ab (Internal) : [address] ? ? S High Crea 1.30 mg/dL 0.66-1.25 Final [facility] Country mg/dL Hospital L ab (Internal) : [address] ? ? S ? Ca 9.3 mg/dL 8.4-10.2 Final [place] [facility] mg/dL Hospital L ab (Internal) : [address] ? ? S ? Na 141 mmol/L 137-145 Final [facility] mmol/L Hospital L ab (Internal) : [address] ? ? S ? K 4.6 mmol/L 3.5-5.1 Final [facility] mmol/L Hospital L ab (Internal) : [address] ? ? S High Cl 111 mmol/L 98-107 Final [facility] mmol/L Hospital L ab (Internal) : [address] ? ? S Low Tco2 21.0 mmol/L 22.0-30.0 Final No [facility] mmol/L Hospital L ab (Internal) : [address] ? ? S ? Tp 7.0 g/dL 6.3-8.2 Final [facility] ountry g/dL Hospital L ab (Internal) : [address] ? ? S ? Alb 4.0 g/dL 3.5-5.0 Final [facility] ountry g/dL Hospital L ab (Internal) : [address] ? ? S ? Tbil 0.6 mg/dL 0.2-1.3 Final [facility] mg/dL Hospital L ab (Internal) : [address] ? ? S ? Alp 54 U/L 38-126 Final [facility] try U/L Hospital L ab (Internal) : [address] ? ? S ? Alt 24 U/L 21-72 U/L Final [facility] ount (Sgpt) Hospital L ab (Internal) : [address] ? ? S ? Ast 23 U/L 17-59 U/L Final [facility] (S[facility]) Hospital L ab (Internal) : [address] 04/15/2018 CRP, High ? No ? ? ? [place] Sensitivity, observatio [place] Serum or n Regional Plasma recorded. Hospita l: [address], [place] 04/15/2018 Lipids, ? No ? ? ? [place] Total, Serum observatio [place] n Regional recorded. Hospita l Lab: [address], [place] 04/15/2018 CBC W/ Diff ? No ? ? ? N [place] observatio [facility] n Regional recorded. Hospita l: [address], [place] 12/03/2016 Urinalysis, UR ? UA-color pale yellow pale Final [facility] Reflex Micro (Int ernal): [address] ? ? UR ? UA-appear clear clear Final [facility] ab (Internal) : [address] ? ? UR ? UA-gluc negative negative Final [facility] ab (Internal) : [address] ? ? UR ? UA-bili negative negative Final [facility] ab (Internal) : [address] ? ? UR ? UA-ketone negative negative Final [facility] ab (Internal) : [address] ? ? UR ? UA-spec >1.030 1.003-1.0 Final [facility] Grav 35 Hospital L ab (Internal) : [address] ? ? UR ? UA-blood negative negative Final [facility] ab (Internal) : [address] ? ? UR ? UA-pH 5.5 [pH] 4.6-8.0 Final [facility] [pH] [facility] ab (Internal) : [address] ? ? UR ABNORMAL UA-prot 1+ negative Final [facility] (Internal) : [address] ? ? UR ? UA-urobil normal normal Final [facility] ab (Internal) : [address] ? ? UR ? UA-nitrit negative negative [facility] [address] ? ? UR ? UA-leuk negative negative Final [facility] Est Hospital L ab (Internal) : [address] 09/26/2016 Venipuncture BLD ? Venpn* ? ? Final [facility] Hospital L ab (Internal) : [address] 09/26/2016 Lactic Acid, S ? La 1.4 mmol/L 0.7-2.1 Fi nal [facility] Blood mmol/L Hospital L ab (Internal) : [address] 09/26/2016 Neutrophil BLD ? Anc-manua 4.66 ? Final [facility] Count, l 10*3/uL Hospital Lab Absolute (Interna l): (Anc), Blood [address] 09/26/2016 Differential BLD ? Polys 62 % 40-75 % Final [facility] , Manual, Hospita l Lab Blood (Internal) : [address] ? ? BLD ? Bands 0 % 0-5 % Final [facility] Hospital L ab (Internal) : [address] ? ? BLD Low Lymphs 15 % 20-50 % Final [facility] Hospital L ab (Internal) : [address] ? ? BLD High Webb 13 % 2-10 % Final [facility] Hospital L ab (Internal) : [address] ? ? BLD High Eos 8 % 0-6 % Final [facility] Hospital L ab (Internal) : [address] ? ? BLD ? Baso 0 % 0-1 % Final [facility] Hospital L ab (Internal) : [address] ? ? BLD ? Atyp 0 % ? Final [facility] Lymph Hospital L ab (Internal) : [address] ? ? BLD High Young 2 % 0-0 % Final [facility] Forms Hospital L ab (Internal) : [address] ? ? BLD ? Plts, adequate adequate Final [facility] Est. Hospital L ab (Internal) : [address] ? ? BLD ? RBC normal normal Final [facility] Morphology Hospit al Lab (Internal) : [address] 09/26/2016 CRP, High S High Rcrp 1.84 mg/dL 0.10-0.30 Fin al [place] Sensitivity, mg/dL Hosp ital Lab Serum or (Interna l): Plasma [address] 09/26/2016 ESR BLD High Esr 59 mm/h 0-20 mm/h Final No [facility]th [facility] (Erythrocyte Hosp ital Lab Sedimentatio (Int ernal): n Rate), [address] 09/26/2016 CMP, Serum S ? g/r 99 mg/dL 74-106 Final [place] or Plasma mg/dL Hospita l Lab (Internal) : [address] ? ? S ? Bun 14 mg/dL 9-20 Final [place] mg/dL Hospital L ab (Internal) : [address] ? ? S ? Crea 0.80 mg/dL 0.66-1.25 Final [place] mg/dL Hospital L ab (Internal) : [address] ? ? S ? Ca 8.6 mg/dL 8.4-10.2 Final [facility] mg/dL Hospital L ab (Internal) : [address] ? ? S ? Na 140 mmol/L 137-145 Final [place] [facility] mmol/L Hospital L ab (Internal) : [address] ? ? S ? K 4.1 mmol/L 3.5-5.1 Final [facility] mmol/L Hospital L ab (Internal) : [address] ? ? S ? Cl 107 mmol/L 98-107 Final [facility] mmol/L Hospital L ab (Internal) : [address] ? ? S ? Tco2 25.0 mmol/L 22.0-30.0 Final No [facility]th [facility] mmol/L Hospital L ab (Internal) : [address] ? ? S ? Tp 7.1 g/dL 6.3-8.2 Final [place] g/dL Hospital L ab (Internal) : [address] ? ? S ? Alb 3.5 g/dL 3.5-5.0 Final [place] g/dL Hospital L ab (Internal) : [address] ? ? S ? Tbil 0.6 mg/dL 0.2-1.3 Final [facility] mg/dL Hospital L ab (Internal) : [address] ? ? S ? Alp 60 U/L 38-126 Final [facility] try U/L Hospital L ab (Internal) : [address] ? ? S ? Alt 43 U/L 21-72 U/L Final [facility] (Sgpt) Hospital L ab (Internal) : [address] ? ? S ? Ast 27 U/L 17-59 U/L Final [facility] (Sgot) Hospital L ab (Internal) : [address] 09/26/2016 CBC W/ Auto BLD ? Wbc 7.5 10*3/uL 5.0-10.0 F inal [facility] Diff 10*3/uL Hospital Lab (Internal) : [address] ? ? BLD Low Rbc 3.70 4.60-6.00 [facility]*6[facility]uL Hospital Lab (Internal) : [address] ? ? BLD Low Hgb 12.1 g/dL 14.0-18.0 Final [facility] Country g/dL Hospital L ab (Internal) : [address] ? ? BLD Low Hct 35.5 % 41.0-51.0 Final [facility] % Hospital L ab (Internal) : [address] ? ? BLD ? Mcv 95.9 fL 80.0-96.0 Final [facility] fL Hospital L ab (Internal) : [address] ? ? BLD High Mch 32.7 pg 26.0-32.0 Final [facility] pg Hospital L ab (Internal) : [address] ? ? BLD ? Mchc 34.1 g/dL 31.0-35.0 Final [facility] Country g/dL Hospital L ab (Internal) : [address] ? ? BLD ? Rdw 13.9 % 11.5-14.5 Final [facility] ountry % Hospital L ab (Internal) : [address] ? ? BLD ? Plt 276 10*3/uL 130-450 Final [facility] 10*3/uL Hospital Lab (Internal) : [address] 06/10/2016 Venipuncture BLD ? Venpn* ? ? Final [facility] Hospital L ab (Internal) : [address] 06/10/2016 RBC BLD ? Aniso small ? Final [facility] Morphology, Hospi raeann Lab Blood (Internal) : [address] 06/10/2016 CMP, Serum S ? g/r 102 mg/dL 74-106 Final [facility] or Plasma mg/dL Hospita l Lab (Internal) : [address] ? ? S ? Bun 14 mg/dL 9-20 Final [facility] untry mg/dL Hospital L ab (Internal) : [address] ? ? S ? Crea 0.80 mg/dL 0.66-1.25 Final [facility] mg/dL Hospital L ab (Internal) : [address] ? ? S ? Ca 8.5 mg/dL 8.4-10.2 Final [facility] mg/dL Hospital L ab (Internal) : [address] ? ? S ? Na 139 mmol/L 137-145 Final [facility] mmol/L Hospital L ab (Internal) : [address] ? ? S ? K 4.3 mmol/L 3.5-5.1 Final [facility] mmol/L Hospital L ab (Internal) : [address] ? ? S ? Cl 105 mmol/L 98-107 Final [facility] mmol/L Hospital L ab (Internal) : [address] ? ? S ? Tco2 25.0 mmol/L 22.0-30.0 Final [facility] mmol/L Hospital L ab (Internal) : [address] ? ? S ? Tp 7.0 g/dL 6.3-8.2 Final [facility] ountry g/dL Hospital L ab (Internal) : [address] ? ? S ? Alb 3.9 g/dL 3.5-5.0 [facility] (Internal[facility] : [address] ? ? S ? Tbil 0.9 mg/dL 0.2-1.3 Final [facility] mg/dL Hospital L ab (Internal) : [address] ? ? S ? Alp 68 U/L 38-126 Final [facility] try U/L Hospital L ab (Internal) : [address] ? ? S ? Alt 31 U/L 21-72 U/L Final [facility] (pt) Hospital L ab (Internal) : [address] ? ? S ? Ast 24 U/L 17-59 U/L Final [facility] (Sgot) Hospital L ab (Internal) : [address] 06/10/2016 CBC W/ Auto BLD ? Wbc 9.6 10*3/uL 5.0-10.0 F inal [facility] Diff 10*3/uL Hospital Lab (Internal) : [address] ? ? BLD Low Rbc 4.24 4.60-6.00 Final [facility] 10*6/uL 10*6/uL Hospital Lab (Internal) : [address] ? ? BLD ? Hgb 14.1 g/dL 14.0-18.0 Final [facility] Country g/dL Hospital L ab (Internal) : [address] ? ? BLD Low Hct 40.8 % 41.0-51.0 Final [facility] % Hospital L ab (Internal) : [address] ? ? BLD High Mcv 96.2 fL 80.0-96.0 Final [facility] fL Hospital L ab (Internal) : [address] ? ? BLD High Mch 33.3 pg 26.0-32.0 Final [facility] pg Hospital L ab (Internal) : [address] ? ? BLD ? Mchc 34.6 g/dL 31.0-35.0 Final [facility] Country g/dL Hospital L ab (Internal) : [address] ? ? BLD High Rdw 15.7 % 11.5-14.5 Final [facility] % Hospital L ab (Internal) : [address] ? ? BLD ? Plt 192 10*3/uL 130-450 Final [facility] 10*3/uL Hospital Lab (Internal) : [address] ? ? BLD ? Anc 6.11 ? Final [facility] try 10*3/uL Hospital Lab (Internal) : [address] ? ? BLD ? Neutro 63.8 % 40.0-75.0 Final [facility] Hospital L ab (Internal) : [address] ? ? BLD Low Lymph 18.5 % 20.0-50.0 Final [facility] Hospital L ab (Internal) : [address] ? ? BLD ? Webb 9.4 % 2.0-10.0 Final [facility] Hospital L ab (Internal) : [address] ? ? BLD High Eos 7.4 % 1.0-6.0 % Final [facility] L ab (Internal) : [address] ? ? BLD ? Baso 0.6 % 0.0-1.0 % Final [facility] L ab (Internal) : [address] ? ? BLD ? Ig 0.3 % 0.0-0.9 % Final [facility] L ab (Internal) : [address] 06/03/2016 Venipuncture BLD ? Venpn* ? ? Final [facility] Hospital L ab (Internal) : [address] 06/03/2016 CMP, Serum S High g/r 122 mg/dL 74-106 Final [facility] or Plasma mg/dL Hospita l Lab (Internal) : [address] ? ? S ? Bun 15 mg/dL 9-20 Final [facility] mg/dL Hospital L ab (Internal) : [address] ? ? S ? Crea 0.90 mg/dL 0.66-1.25 Final [facility] mg/dL Hospital L ab (Internal) : [address] ? ? S ? Ca 8.6 mg/dL 8.4-10.2 Final [facility] mg/dL Hospital L ab (Internal) : [address] ? ? S ? Na 142 mmol/L 137-145 Final [facility] mmol/L Hospital L ab (Internal) : [address] ? ? S ? K 4.3 mmol/L 3.5-5.1 Final [facility] mmol/L Hospital L ab (Internal) : [address] ? ? S ? Cl 105 mmol/L 98-107 Final [facility] mmol/L Hospital L ab (Internal) : [address] ? ? S ? Tco2 29.0 mmol/L 22.0-30.0 Final No rth [facility] mmol/L Hospital L ab (Internal) : [address] ? ? S ? Tp 7.1 g/dL 6.3-8.2 Final [facility] ountry g/dL Hospital L ab (Internal) : [address] ? ? S ? Alb 4.0 g/dL 3.5-5.0 Final [facility] ountry g/dL Hospital L ab (Internal) : [address] ? ? S ? Tbil 0.8 mg/dL 0.2-1.3 Final [facility] mg/dL Hospital L ab (Internal) : [address] ? ? S ? Alp 69 U/L 38-126 Final [facility] try U/L Hospital L ab (Internal) : [address] ? ? S ? Alt 33 U/L 21-72 U/L Final [facility] (Sgpt) Hospital L ab (Internal) : [address] ? ? S ? Ast 21 U/L 17-59 U/L Final [facility] (Sgot) Hospital L ab (Internal) : [address] 06/03/2016 CBC W/ Auto BLD High Wbc 11.5 5.0-10.0 Final [facility] Diff 10*3/uL 10*3/uL Hospital Lab (Internal) : [address] ? ? BLD Low Rbc 4.39 4.60-6.00 Final [facility] 10*6/uL 10*6/uL Hospital Lab (Internal) : [address] ? ? BLD ? Hgb 14.7 g/dL 14.0-18.0 Final [facility] Country g/dL Hospital L ab (Internal) : [address] ? ? BLD ? Hct 42.3 % 41.0-51.0 Final [facility] ountry % Hospital L ab (Internal) : [address] ? ? BLD High Mcv 96.4 fL 80.0-96.0 Final [facility] fL Hospital L ab (Internal) : [address] ? ? BLD High Mch 33.5 pg 26.0-32.0 Final [facility] pg Hospital L ab (Internal) : [address] ? ? BLD ? Mchc 34.8 g/dL 31.0-35.0 Final [facility] Country g/dL Hospital L ab (Internal) : [address] ? ? BLD High Rdw 15.0 % 11.5-14.5 Final [facility] ountry % Hospital L ab (Internal) : [address] ? ? BLD ? Plt 199 10*3/uL 130-450 Final [facility] Country 10*3/uL Hospital Lab (Internal) : [address] ? ? BLD ? Anc 6.53 ? Final [facility] try 10*3/uL Hospital Lab (Internal) : [address] ? ? BLD ? Neutro 56.6 % 40.0-75.0 Final [facility] % Hospital L ab (Internal) : [address] ? ? BLD ? Lymph 25.8 % 20.0-50.0 Final [facility] ountry % Hospital L ab (Internal) : [address] ? ? BLD ? Webb 7.6 % 2.0-10.0 Final [facility] untry % Hospital L ab (Internal) : [address] ? ? BLD High Eos 9.1 % 1.0-6.0 % Final [facility] ount Hospital L ab (Internal) : [address] [place] [address] ? ? BLD ? Baso 0.6 % 0.0-1.0 % Final [facility] Hospital L ab (Internal) : [address] ? ? BLD ? Ig 0.3 % 0.0-0.9 % Final [facility] L ab (Internal) : [address] 05/22/2016 Venipuncture BLD ? Venpn* ? ? Final [facility] Hospital L ab (Internal) : [address] 05/22/2016 RBC BLD ? Aniso occasional ? Final [facility] Morphology, Hospi raeann Lab Blood (Internal) : [address] 05/22/2016 CMP, Serum S High g/r 149 mg/dL 74-106 Final [place] [facility] or Plasma mg/dL Hospita l Lab (Internal) : [address] ? ? S ? Bun 11 mg/dL 9-20 Final [facility] unt mg/dL Hospital L ab (Internal) : [address] ? ? S ? Crea 0.70 mg/dL 0.66-1.25 Final [facility] mg/dL Hospital L ab (Internal) : [address] ? ? S ? Ca 8.5 mg/dL 8.4-10.2 Final [facility] mg/dL Hospital L ab (Internal) : [address] ? ? S ? Na 142 mmol/L 137-145 Final [facility] mmol/L Hospital L ab (Internal) : [address] ? ? S ? K 4.0 mmol/L 3.5-5.1 Final [facility] mmol/L Hospital L ab (Internal) : [address] ? ? S ? Cl 106 mmol/L 98-107 Final [facility] mmol/L Hospital L ab (Internal) : [address] ? ? S ? Tco2 26.0 mmol/L 22.0-30.0 Final [facility] mmol/L Hospital L ab (Internal) : [address] ? ? S ? Tp 6.8 g/dL 6.3-8.2 Final [facility] ountry g/dL Hospital L ab (Internal) : [address] ? ? S ? Alb 3.8 g/dL 3.5-5.0 Final [facility] ountry g/dL Hospital L ab (Internal) : [address] ? ? S ? Tbil 0.6 mg/dL 0.2-1.3 Final [facility] mg/dL Hospital L ab (Internal) : [address] ? ? S ? Alp 67 U/L 38-126 Final [facility] try U/L Hospital L ab (Internal) : [address] [address] t ? ? S ? Alt 35 U/L 21-72 U/L Final [facility] ([facility] Hospital L ab (Internal) : [address] ? ? S ? Ast 28 U/L 17-59 U/L Final [facility] ([facility] Hospital L ab (Internal) : [address] t 05/22/2016 CBC W/ Auto BLD High Wbc 13.7 5.0-10.0 Final [facility] Diff 10*3/uL 10*3/uL Hospital Lab (Internal) : [address] ? ? BLD Low Rbc 4.12 4.60-6.00 Final [facility] ountry 10*6/uL 10*6/uL Hospital Lab (Internal) : [address] ? ? BLD Low Hgb 13.8 g/dL 14.0-18.0 Final [facility] g/dL Hospital L ab (Internal) : [address] ? ? BLD Low Hct 40.1 % 41.0-51.0 Final [facility] ount % Hospital L ab (Internal) : [address] t ? ? BLD High Mcv 97.3 fL 80.0-96.0 Final [facility] fL Hospital L ab (Internal) : [address] ? ? BLD High Mch 33.5 pg 26.0-32.0 Final [facility] pg Hospital L ab (Internal) : [address] t ? ? BLD ? Mchc 34.4 g/dL 31.0-35.0 Final [facility] Country g/dL Hospital L ab (Internal) : [address] ? ? BLD High Rdw 15.2 % 11.5-14.5 Final [facility] Hospital L ab (Internal) : [address] S[address] t ? ? BLD ? Plt 144 10*3/uL 130-450 Final [facility] Country 10*3/uL Hospital Lab (Internal) : [address] ? ? BLD ? Anc 7.75 ? Final [facility] try 10*3/uL Hospital Lab (Internal) : [address] t ? ? BLD ? Neutro 56.7 % 40.0-75.0 Final [facility] Hospital L ab (Internal) : [address] ? ? BLD ? Lymph 26.9 % 20.0-50.0 Final [facility] Hospital L ab (Internal) : [address] ? ? BLD ? Webb 8.1 % 2.0-10.0 Final [facility] Hospital L ab (Internal) : [address] ? ? BLD High Eos 7.4 % 1.0-6.0 % Final [facility] L ab (Internal) : [address] ? ? BLD ? Baso 0.6 % 0.0-1.0 % Final [facility] L ab (Internal) : [address] t ? ? BLD ? Ig 0.3 % 0.0-0.9 % Final [facility] L ab (Internal) : [address] 05/08/2016 Venipuncture BLD ? Venpn* ? ? Final [facility] Hospital L ab (Internal) : [address] 05/08/2016 RBC BLD ? Aniso small ? Final [facility] Morphology, Hospi raeann Lab Blood (Internal) : [address] 05/08/2016 CMP, Serum S High g/r 121 mg/dL 74-106 Final [facility] or Plasma mg/dL Hospita l Lab (Internal) : [address] ? ? S ? Bun 16 mg/dL 9-20 Final [facility] untry mg/dL Hospital L ab (Internal) : [address] ? ? S ? Crea 1.00 mg/dL 0.66-1.25 Final [facility] Country mg/dL Hospital L ab (Internal) : [address] ? ? S ? Ca 8.7 mg/dL 8.4-10.2 Final [facility] mg/dL Hospital L ab (Internal) : [address] t ? ? S ? Na 141 mmol/L 137-145 Final [facility] mmol/L Hospital L ab (Internal) : [address] ? ? S ? K 4.2 mmol/L 3.5-5.1 Final [facility] mmol/L Hospital L ab (Internal) : [address] ? ? S ? Cl 104 mmol/L 98-107 Final [facility] mmol/L Hospital L ab (Internal) : [address] ? ? S ? Tco2 26.0 mmol/L 22.0-30.0 Final [facility] mmol/L Hospital L ab (Internal) : [address] ? ? S ? Tp 7.2 g/dL 6.3-8.2 Final [facility] ountry g/dL Hospital L ab (Internal) : [address] ? ? S ? Alb 4.1 g/dL 3.5-5.0 Final [facility] ountry g/dL Hospital L ab (Internal) : [address] ? ? S ? Tbil 0.9 mg/dL 0.2-1.3 Final [facility] mg/dL Hospital L ab (Internal) : [address] ? ? S ? Alp 76 U/L 38-126 Final [facility] try U/L Hospital L ab (Internal) : [address] t ? ? S ? Alt 34 U/L 21-72 U/L Final [facility] ount ([facility]) Hospital L ab (Internal) : [address] t ? ? S ? Ast 20 U/L 17-59 U/L Final [facility] (Internal[facility] : [address] t 05/08/2016 CBC W/ Auto BLD High Wbc 10.2 5.0-10.0 Final [place] [facility] Diff 10*3/uL 10*3/uL Hospital Lab (Internal) : [address] ? ? BLD Low Rbc 4.13 4.60-6.00 Final [facility] ountry 10*6/uL 10*6/uL Hospital Lab (Internal) : [address] ? ? BLD Low Hgb 13.6 g/dL 14.0-18.0 Final [facility] g/dL Hospital L ab (Internal) : [address] ? ? BLD ? Hct 41.3 % 41.0-51.0 Final [facility] L ab (Internal[facility] : [address] ? ? BLD High Mcv 100.0 fL 80.0-96.0 Final [facility] fL Hospital L ab (Internal) : [address] ? ? BLD High Mch 32.9 pg 26.0-32.0 Final [facility] pg Hospital L ab (Internal) : [address] ? ? BLD ? Mchc 32.9 g/dL 31.0-35.0 Final [facility] g/dL Hospital L ab (Internal) : [address] ? ? BLD High Rdw 15.9 % 11.5-14.5 Final [facility] Hospital L ab (Internal) : [address] ? ? BLD ? Plt 210 10*3/uL 130-450 Final [facility] Country 10*3/uL Hospital Lab (Internal) : [address] ? ? BLD ? Anc 6.92 ? Final [facility] try 10*3/uL Hospital Lab (Internal) : [address] ? ? BLD ? Neutro 67.6 % 40.0-75.0 Final [facility] % Hospital L ab (Internal) : [address] ? ? BLD Low Lymph 18.9 % 20.0-50.0 Final [facility] ount % Hospital L ab (Internal) : [address] ? ? BLD ? Webb 7.1 % 2.0-10.0 Final [facility] Hospital L ab (Internal) : [address] ? ? BLD ? Eos 5.2 % 1.0-6.0 % Final [facility] L ab (Internal) : [address] ? ? BLD ? Baso 0.9 % 0.0-1.0 % Final [facility] L ab (Internal) : [address] ? ? BLD ? Ig 0.3 % 0.0-0.9 % Final [facility] L ab (Internal) : [address] Past Encounters 01/02/2021 Crohn's Disease; Kidney Stone; Chronic M yeloid Leukemia Deon Garcia MD: [address] [place] [address], Ph. 10/03/2020 Right Upper Quadrant Pain; Kidney Stone Ana M Freeman MD: [address] [place] [address], Ph. Social History Tobacco Smoking Status Never Smoker Vaccine List Vaccine Type COVID-19, mRNA, LNP-S, PF, 30 mcg/0.3 mL dose (Humble Bundle) 06/12/2020 07/07/2020 influenza, injectable, quadrivalent, pre servative free 03/20/2016?0.5 mL influenza, seasonal, injectable 12/10/2017 influenza, seasonal, injectable, preserv ative free 01/05/2008 pneumococcal conjugate PCV 13 03/20/2016?0.5 mL pneumococcal polysaccharide PPV23 05/27/2008 Td (adult), adsorbed 07/23/1999 zoster live 08/08/2014?0.65 mL Plan of Care Reminders Provider Appointments None ? ? recorded. Lab None ? ? recorded. Referral None ? ? recorded. Procedures None ? ? recorded. Surgeries None ? ? recorded. Imaging None ? ? recorded. Vitals 01/02/2021 08:00AM Office [facility] 40 Height Weight BMI Blood Pressure 171.45 cm 94.57 kg 32.2 kg/m2 118/74 mm[Hg] 10/03/2020 10:20AM Acute 20 Height Weight BMI Blood Pressure 171.45 cm 98.68 kg 33.6 kg/m2 134/84 mm[Hg] 12/08/2018 03:20PM Acute 20 Height Blood Pressure 175.26 cm 148/82 mm[Hg] 03/11/2018 11:20AM Follow Up 40 Height Weight BMI Blood Pressure 175.26 cm 105.64 kg 34.4 kg/m2 140/80 mm[Hg] 12/03/2016 Weight Blood Pressure 101.55 kg 118/64 mm[Hg] 09/26/2016 Weight Blood Pressure 100.25 kg 124/76 mm[Hg] 03/20/2016 Weight Blood Pressure 89.9 kg 112/58 mm[Hg] 03/05/2016 Weight Blood Pressure 93 kg 130/72 mm[Hg] 03/15/2015 Height Weight Blood Pressure 172.72 cm 103.92 kg 128/74 mm[Hg] 09/13/2014 Blood Pressure 120/80 mm[Hg] 08/08/2014 Height Weight Blood Pressure 172.72 cm 102.38 kg 130/82 mm[Hg] 04/01/2014 Weight Blood Pressure 103.06 kg 132/78 mm[Hg] 12/04/2011 Weight Blood Pressure 91.49 kg 134/86 mm[Hg] 09/04/2011 Height Weight Blood Pressure 172.72 cm 92.71 kg 106/62 mm[Hg] 04/25/2011 Height Weight Blood Pressure 172.72 cm 91.9 kg 126/74 mm[Hg] 03/15/2011 Height Weight Blood Pressure 172.72 cm 92.99 kg 116/80 mm[Hg] 02/07/2011 Height Weight Blood Pressure 172.72 cm 93.49 kg 112/76 mm[Hg] 11/07/2010 Height Weight Blood Pressure 172.72 cm 93.35 kg 108/74 mm[Hg] 10/30/2010 Height Weight Blood Pressure 172.72 cm 93.89 kg 120/70 mm[Hg] 03/09/2010 Weight Blood Pressure 98.84 kg (1) 112/70 mm[Hg] (2) 112/72 mm[Hg] 11/23/2009 Blood Pressure (1) 110/72 mm[Hg] (2) 110/70 mm[Hg] 11/17/2009 Weight Blood Pressure 95.84 kg 114/78 mm[Hg] 11/13/2009 Weight Blood Pressure 95.98 kg 106/72 mm[Hg] 06/14/2008 Weight Blood Pressure 89.36 kg 126/86 mm[Hg] 05/27/2008 Weight Blood Pressure 88.45 kg 96/70 mm[Hg] 03/10/2008 Weight Blood Pressure 92.99 kg 108/68 mm[Hg] 01/05/2008 Weight Blood Pressure 93.89 kg 108/68 mm[Hg] 11/27/2007 Weight Blood Pressure 90.72 kg 114/76 mm[Hg] 11/09/2007 Weight Blood Pressure 92.99 kg (1) 100/80 mm[Hg] (2) 98/58 mm[Hg] 12/04/2006 Weight Blood Pressure 102.51 kg 110/80 mm[Hg] 09/01/2006 Weight Blood Pressure 104.78 kg 128/80 mm[Hg] 11/22/2005 Weight Blood Pressure 105.23 kg 130/90 mm[Hg] 09/23/2005 Weight Blood Pressure 97.98 kg 108/70 mm[Hg] 08/23/2005 Weight Blood Pressure 104.78 kg 130/90 mm[Hg] 06/05/2004 Weight Blood Pressure 94.35 kg 120/90 mm[Hg] 03/09/2004 Weight Blood Pressure 104.33 kg 120/80 mm[Hg]
[2021-08-03 10:17] LABS: Indication for Study CML
[2021-08-03 10:18] LABS: Specimen Type Peripheral blood
[2021-08-03 10:19] LABS: BCR-ABL1 p210 FusionTranscript See Comments
[2021-08-03 10:26] LABS: BCR-ABL1 Interpretation See Comments; Limitations and Disclaimers See Comments
== END 2021-07-24 02:05 | disposition home or self-care (01) ==
LOC: LBO 02:04
PROVIDERS: PCP Family Medicine; Visit Provider Internal Medicine Hematology & Oncology
DX: C92.10 Chronic myeloid leukemia, BCR/ABL-positive, not having achieved remission (principal)
CPT/HCPCS: 81206

== ENCOUNTER 2021-07-27 01:50 | Outpatient (RCR) | payer MEDICARE, SELFPAY ==
[2021-07-27] MEDS: Normal Saline Flush 10 ML SYR IVP (08:14)
[2021-07-27 08:27] LABS: HCT 43.8 % (40.0-50.0); HGB 14.7 g/dL (13.5-17.5); MCHC 33.6 % (32.0-36.0); MCV 95 fL (80-95); MPV 10.1 fL (8.0-11.0); Platelet Count 154 10^3/uL (130-400); RBC 4.59 10^6/uL (4.36-5.78); RDW 12.7 % (11.8-14.1); RDW-SD 44.8 fL; WBC 7.07 10^3/uL (4.4-10.8)
[2021-07-27] MEDS: VEDOLIZUMAB 300 MG in Normal Saline 250 ML 500 MG IVPB (08:51)
[2021-07-27 09:34] LABS: ALT 17 U/L (16-63); AST 14 U/L (15-37); Albumin 2.8 g/dL (3.4-5.0); Alkaline Phosphatase 55 U/L (46-116); Bilirubin, Direct 0.2 mg/dL (0.0-0.2); Bilirubin, Total 0.9 mg/dL (0.2-1.0); C-Reactive Protein 0.65 mg/dL (0.0-0.3); Total Protein 5.9 g/dL (6.4-8.2)
== END 2021-08-21 23:59 | disposition home or self-care (01) ==
LOC: INF 01:50
PROVIDERS: PCP Family Medicine; Visit Provider Internal Medicine
DX: D50.9 Iron deficiency anemia, unspecified (principal)
CPT/HCPCS: 36415; 80076; 85027; 96365; 86140; J3380

== ENCOUNTER 2021-10-15 04:11 | Outpatient (CLI) | payer MEDICARE, SELFPAY | END 2021-10-15 04:12 | disposition home or self-care (01) | LOC: LBO 04:11 | PROVIDERS: PCP Family Medicine; Visit Provider Internal Medicine Hematology & Oncology ==

== ENCOUNTER 2021-10-17 03:46 | Outpatient (CLI) | payer MEDICARE, SELFPAY ==
[2021-10-17 13:16] LABS: Abs Immature Grans 0.05 10^3/uL (0.0-0.06); Absolute Basophil Count 0.07 10^3/uL (0.0-0.2); Absolute Eosinophil Count 0.26 10^3/uL (0.0-0.7); Absolute Lymphocyte Count 1.76 10^3/uL (1.2-3.4); Absolute Monocyte Count 0.69 10^3/uL (0.1-0.8); Absolute Neutrophil Count 6.69 10^3/uL (1.2-6.7); Basophils % 0.7; Eosinophils % 2.7; HCT 44.1 % (40.0-50.0); HGB 15.2 g/dL (13.5-17.5); Immature Grans % 0.5; Lymphocytes % 18.5; MCH 32.3 pg (27.0-33.0); MCHC 34.5 % (32.0-36.0); MCV 94 fL (80-95); MPV 9.6 fL (8.0-11.0); Monocytes % 7.2; Neutrophils % 70.4; Platelet Count 205 10^3/uL (130-400); RBC 4.71 10^6/uL (4.36-5.78); RDW 13.3 % (11.8-14.1); RDW-SD 45.5 fL; WBC 9.52 10^3/uL (4.4-10.8)
[2021-10-17 14:26] LABS: ALT 25 U/L (16-63); AST 15 U/L (15-37); Albumin 3.5 g/dL (3.4-5.0); Alkaline Phosphatase 80 U/L (46-116); Anion Gap 6.5 mmol/L (3-11); BUN 17 mg/dL (7-18); Bilirubin, Total 0.4 mg/dL (0.2-1.0); CO2 27.5 mmol/L (21.0-32.0); CREATININE 1.3 mg/dL (0.70-1.30); Calcium 8.4 mg/dL (8.5-10.1); Chloride 107 mmol/L (98-107); Glucose 88 mg/dL (74-106); Potassium 3.9 mmol/L (3.5-5.1); Sodium 141 mmol/L (136-145)
[2021-10-26 15:10] LABS: Indication for Study CML
[2021-10-26 15:11] LABS: Specimen Type Peripheral blood
[2021-10-26 15:12] LABS: BCR-ABL1 Interpretation See Comments; BCR-ABL1 p210 FusionTranscript See Comments
[2021-10-26 15:13] LABS: Limitations and Disclaimers See Comments
== END 2021-10-17 03:47 | disposition home or self-care (01) ==
PROVIDERS: PCP Family Medicine; Visit Provider Nurse Practitioner Adult Health
DX: C92.10 Chronic myeloid leukemia, BCR/ABL-positive, not having achieved remission (principal)
CPT/HCPCS: 36415; 80053; 81206; 85025

== ENCOUNTER 2022-01-02 02:10 | Outpatient (CLI) | payer MEDICARE, SELFPAY ==
[2022-01-02 07:20] LABS: Abs Immature Grans 0.04 10^3/uL (0.0-0.06); Absolute Basophil Count 0.05 10^3/uL (0.0-0.2); Absolute Eosinophil Count 0.33 10^3/uL (0.0-0.7); Absolute Lymphocyte Count 1.32 10^3/uL (1.2-3.4); Absolute Monocyte Count 0.81 10^3/uL (0.1-0.8); Absolute Neutrophil Count 6.37 10^3/uL (1.2-6.7); Basophils % 0.6; Eosinophils % 3.7; HCT 40.5 % (40.0-50.0); HGB 14.1 g/dL (13.5-17.5); Immature Grans % 0.4; Lymphocytes % 14.8; MCH 33.1 pg (27.0-33.0); MCHC 34.8 % (32.0-36.0); MCV 95 fL (80-95); MPV 9.8 fL (8.0-11.0); Monocytes % 9.1; Neutrophils % 71.4; Platelet Count 175 10^3/uL (130-400); RBC 4.26 10^6/uL (4.36-5.78); RDW 13.2 % (11.8-14.1); RDW-SD 46.1 fL; WBC 8.92 10^3/uL (4.4-10.8)
[2022-01-02 08:00] LABS: ALT 16 U/L (16-63); AST 14 U/L (15-37); Albumin 3.3 g/dL (3.4-5.0); Alkaline Phosphatase 69 U/L (46-116); Anion Gap 7.2 mmol/L (3-11); BUN 18 mg/dL (7-18); Bilirubin, Total 0.6 mg/dL (0.2-1.0); CO2 25.8 mmol/L (21.0-32.0); CREATININE 1.3 mg/dL (0.70-1.30); Calcium 8.7 mg/dL (8.5-10.1); Chloride 108 mmol/L (98-107); Estimated GFR 59.84 (mL/min/1.73m2); Glucose 109 mg/dL (74-106); Potassium 4.2 mmol/L (3.5-5.1); Sodium 141 mmol/L (136-145); Total Protein 6.7 g/dL (6.4-8.2)
[2022-01-10 09:10] LABS: Indication for Study CML
[2022-01-10 09:11] LABS: BCR-ABL1 p210 FusionTranscript See Comments; Limitations and Disclaimers See Comments; Specimen Type Peripheral blood
[2022-01-10 09:16] LABS: BCR-ABL1 Interpretation See Comments
== END 2022-01-02 02:11 | disposition home or self-care (01) ==
LOC: LBO 02:10
PROVIDERS: PCP Family Medicine; Visit Provider Internal Medicine Hematology & Oncology
DX: C92.10 Chronic myeloid leukemia, BCR/ABL-positive, not having achieved remission (principal)
CPT/HCPCS: 36415; 80053; 81206; 85025

== ENCOUNTER 2022-07-09 02:32 | Outpatient (CLI) | payer MEDICARE, SELFPAY ==
[2022-07-09 11:21] LABS: Abs Immature Grans 0.06 10^3/uL (0.0-0.06); Absolute Basophil Count 0.06 10^3/uL (0.0-0.2); Absolute Eosinophil Count 0.23 10^3/uL (0.0-0.7); Absolute Monocyte Count 0.62 10^3/uL (0.1-0.8); Absolute Neutrophil Count 5.92 10^3/uL (1.2-6.7); Basophils % 0.7; Eosinophils % 2.7; Immature Grans % 0.7; Lymphocytes % 19.8; MCH 33.3 pg (27.0-33.0); MCHC 34.8 % (32.0-36.0); MCV 96 fL (80-95); MPV 9.7 fL (8.0-11.0); Monocytes % 7.2; Neutrophils % 68.9; Platelet Count 197 10^3/uL (130-400); RDW 12.9 % (11.8-14.1); RDW-SD 46.2 fL; WBC 8.59 10^3/uL (4.4-10.8)
[2022-07-09 11:41] LABS: ALT 20 U/L (16-63); AST 13 U/L (15-37); Albumin 3.7 g/dL (3.4-5.0); Alkaline Phosphatase 68 U/L (46-116); Anion Gap 6.3 mmol/L (3-11); BUN 17 mg/dL (7-18); Bilirubin, Total 0.9 mg/dL (0.2-1.0); CO2 27.7 mmol/L (21.0-32.0); CREATININE 1.4 mg/dL (0.70-1.30); Calcium 8.8 mg/dL (8.5-10.1); Chloride 106 mmol/L (98-107); Estimated GFR 54.41 (mL/min/1.73m2); Glucose 108 mg/dL (74-106); Potassium 4.2 mmol/L (3.5-5.1); Sodium 140 mmol/L (136-145); Total Protein 7.4 g/dL (6.4-8.2)
[2022-07-11 14:59] LABS: BCR-ABL1 p210 FusionTranscript See Comments; Indication for Study See Comments; Specimen Type Blood
[2022-07-11 15:00] LABS: BCR-ABL1 Interpretation See Comments; Limitations and Disclaimers See Comments
== END 2022-07-09 02:33 | disposition home or self-care (01) ==
PROVIDERS: PCP Family Medicine; Visit Provider Nurse Practitioner Adult Health
DX: C92.10 Chronic myeloid leukemia, BCR/ABL-positive, not having achieved remission (principal)
CPT/HCPCS: 36415; 80053; 81206; 85025

== ENCOUNTER 2022-10-10 02:33 | Outpatient (CLI) | payer MEDICARE, SELFPAY ==
[2022-10-10 10:21] LABS: Abs Immature Grans 0.05 10^3/uL (0.0-0.06); Absolute Basophil Count 0.06 10^3/uL (0.0-0.2); Absolute Monocyte Count 0.58 10^3/uL (0.1-0.8); Absolute Neutrophil Count 4.94 10^3/uL (1.2-6.7); Basophils % 0.8; HCT 46.3 % (40.0-50.0); HGB 15.4 g/dL (13.5-17.5); Immature Grans % 0.7; Lymphocytes % 20.2; MCH 32.2 pg (27.0-33.0); MCHC 33.3 % (32.0-36.0); MCV 97 fL (80-95); MPV 9.6 fL (8.0-11.0); Monocytes % 7.8; Neutrophils % 66.5; Platelet Count 204 10^3/uL (130-400); RBC 4.78 10^6/uL (4.36-5.78); RDW 12.9 % (11.8-14.1); RDW-SD 46.3 fL; WBC 7.43 10^3/uL (4.4-10.8)
[2022-10-10 10:51] LABS: ALT 19 U/L (16-63); AST 12 U/L (15-37); Albumin 3.4 g/dL (3.4-5.0); Alkaline Phosphatase 65 U/L (46-116); Anion Gap 9.6 mmol/L (3-11); BUN 12 mg/dL (7-18); Bilirubin, Total 0.6 mg/dL (0.2-1.0); CO2 24.4 mmol/L (21.0-32.0); CREATININE 1.1 mg/dL (0.70-1.30); Calcium 8.3 mg/dL (8.5-10.1); Chloride 109 mmol/L (98-107); Estimated GFR 72.67 (mL/min/1.73m2); Glucose 97 mg/dL (74-106); Potassium 4.4 mmol/L (3.5-5.1); Sodium 143 mmol/L (136-145); Total Protein 6.9 g/dL (6.4-8.2)
[2022-10-14 12:52] LABS: Indication for Study Not Provided; Specimen Type Blood
[2022-10-14 12:53] LABS: BCR-ABL1 p210 FusionTranscript See Comments
[2022-10-14 12:55] LABS: BCR-ABL1 Interpretation See Comments
[2022-10-14 12:58] LABS: Limitations and Disclaimers See Comments
== END 2022-10-10 02:34 | disposition home or self-care (01) ==
LOC: LBO 02:34
PROVIDERS: PCP Family Medicine; Visit Provider Internal Medicine Hematology & Oncology
DX: C92.10 Chronic myeloid leukemia, BCR/ABL-positive, not having achieved remission (principal)
CPT/HCPCS: 36415; 80053; 81206; 85025

== ENCOUNTER 2023-10-08 03:56 | Outpatient (CLI) | payer MEDICARE, SELFPAY ==
[2023-10-08 14:41] LABS: Abs Immature Grans 0.04 10^3/uL (0.0-0.06); Absolute Basophil Count 0.04 10^3/uL (0.0-0.2); Absolute Eosinophil Count 0.27 10^3/uL (0.0-0.7); Absolute Lymphocyte Count 1.53 10^3/uL (1.2-3.4); Absolute Monocyte Count 0.55 10^3/uL (0.1-0.8); Basophils % 0.5 %; Eosinophils % 3.6 %; HCT 44.9 % (40.0-50.0); HGB 15.4 g/dL (13.5-17.5); Immature Grans % 0.5 %; Lymphocytes % 20.3 %; MCH 33.2 pg (27.0-33.0); MCHC 34.3 % (32.0-36.0); MCV 97 fL (80-95); MPV 9.8 fL (8.0-11.0); Monocytes % 7.3 %; Neutrophils % 67.8 %; Platelet Count 170 10^3/uL (130-400); RBC 4.64 10^6/uL (4.36-5.78); RDW 12.7 % (11.8-14.1); RDW-SD 45.1 fL; WBC 7.53 10^3/uL (4.4-10.8)
[2023-10-08 14:57] LABS: ALT 21 U/L (16-63); AST 11 U/L (15-37); Albumin 3.3 g/dL (3.4-5.0); Alkaline Phosphatase 59 U/L (46-116); Anion Gap 9.1 mmol/L (3-11); BUN 15 mg/dL (7-18); Bilirubin, Total 0.52 mg/dL (0.2-1.0); CO2 23.9 mmol/L (21.0-32.0); CREATININE 1.3 mg/dL (0.70-1.30); Calcium 8.5 mg/dL (8.5-10.1); Chloride 109 mmol/L (98-107); Glucose 103 mg/dL (74-106); Potassium 3.9 mmol/L (3.5-5.1); Sodium 142 mmol/L (136-145); Total Protein 6.6 g/dL (6.4-8.2)
[2023-10-13 15:01] LABS: Specimen Type Blood
[2023-10-13 15:33] LABS: Indication for Study CML
[2023-10-13 15:35] LABS: BCR-ABL1 Interpretation See Comments; BCR-ABL1 p210 FusionTranscript See Comments
[2023-10-13 15:38] LABS: Limitations and Disclaimers See Comments
== END 2023-10-08 03:57 | disposition home or self-care (01) ==
LOC: LBO 03:56
PROVIDERS: PCP Family Medicine; Visit Provider Nurse Practitioner Adult Health
DX: C92.10 Chronic myeloid leukemia, BCR/ABL-positive, not having achieved remission (principal)
CPT/HCPCS: 36415; 80053; 81206; 85025

== ENCOUNTER 2024-03-10 04:17 | Outpatient (CLI) | payer MEDICARE, SELFPAY ==
[2024-03-10 07:47] LABS: Abs Immature Grans 0.04 10^3/uL (0.0-0.06); Absolute Basophil Count 0.05 10^3/uL (0.0-0.2); Absolute Eosinophil Count 0.27 10^3/uL (0.0-0.7); Absolute Lymphocyte Count 2.03 10^3/uL (1.2-3.4); Absolute Monocyte Count 0.69 10^3/uL (0.1-0.8); Absolute Neutrophil Count 5.53 10^3/uL (1.2-6.7); Basophils % 0.6 %; Eosinophils % 3.1 %; HCT 46.4 % (40.0-50.0); Immature Grans % 0.5 %; Lymphocytes % 23.6 %; MCH 32.9 pg (27.0-33.0); MCHC 34.5 % (32.0-36.0); MCV 96 fL (80-95); MPV 9.9 fL (8.0-11.0); Neutrophils % 64.2 %; Platelet Count 195 10^3/uL (130-400); RBC 4.86 10^6/uL (4.36-5.78); RDW-SD 45.4 fL; WBC 8.61 10^3/uL (4.4-10.8)
[2024-03-10 08:04] LABS: ALT 20 U/L (16-63); AST 15 U/L (15-37); Albumin 3.4 g/dL (3.4-5.0); Alkaline Phosphatase 62 U/L (46-116); Anion Gap 11.6 mmol/L (3-11); BUN 15 mg/dL (7-18); Bilirubin, Total 0.88 mg/dL (0.2-1.0); CO2 23.4 mmol/L (21.0-32.0); CREATININE 1.5 mg/dL (0.70-1.30); Calcium 8.6 mg/dL (8.5-10.1); Chloride 110 mmol/L (98-107); Estimated GFR 49.77 (mL/min/1.73m2); Glucose 155 mg/dL (74-106); Sodium 145 mmol/L (136-145); Total Protein 7.1 g/dL (6.4-8.2)
[2024-03-12 08:33] LABS: Indication for Study CML; Specimen Type Whole Blood
[2024-03-12 09:17] LABS: BCR-ABL1 p210 FusionTranscript See Comments
[2024-03-12 09:22] LABS: BCR-ABL1 Interpretation See Comments
[2024-03-12 09:24] LABS: Limitations and Disclaimers See Comments
== END 2024-03-10 04:18 | disposition home or self-care (01) ==
PROVIDERS: PCP Family Medicine; Visit Provider Nurse Practitioner Adult Health
DX: C92.10 Chronic myeloid leukemia, BCR/ABL-positive, not having achieved remission (principal)
CPT/HCPCS: 36415; 80053; 81206; 85025

== ENCOUNTER 2024-10-05 03:38 | Outpatient (CLI) | payer MEDICARE, SELFPAY ==
[2024-10-05 09:04] LABS: Abs Immature Grans 0.04 10^3/uL (0.0-0.06); HCT 46.6 % (40.0-50.0); HGB 16.1 g/dL (13.5-17.5); Immature Grans % 0.4 %; MCH 33.5 pg (27.0-33.0); MCHC 34.5 % (32.0-36.0); MCV 97 fL (80-95); MPV 10.3 fL (8.0-11.0); Platelet Count 175 10^3/uL (130-400); RBC 4.81 10^6/uL (4.36-5.78); RDW 13.0 % (11.8-14.1); RDW-SD 46.5 fL; WBC 9.09 10^3/uL (4.4-10.8)
[2024-10-05 09:17] LABS: ALT 25 U/L (16-63); AST 17 U/L (15-37); Albumin 3.6 g/dL (3.4-5.0); Alkaline Phosphatase 68 U/L (46-116); Anion Gap 11.6 mmol/L (3-11); BUN 16 mg/dL (7-18); Bilirubin, Total 0.7 mg/dL (0.2-1.0); CO2 22.4 mmol/L (21.0-32.0); Calcium 8.7 mg/dL (8.5-10.1); Chloride 108 mmol/L (98-107); Estimated GFR 64.65 (mL/min/1.73m2); Glucose 93 mg/dL (74-106); Potassium 3.7 mmol/L (3.5-5.1); Sodium 142 mmol/L (136-145); Total Protein 6.8 g/dL (6.4-8.2)
[2024-10-07 14:46] LABS: %BCR-ABL1 Not Detected; BCR-ABL1 Molecular Response Not Detected; BCR-ABL1 p210 FusionTranscript Not Detected (NotDetected)
== END 2024-10-05 03:39 | disposition home or self-care (01) ==
PROVIDERS: PCP Family Medicine; Visit Provider Nurse Practitioner Adult Health
DX: C92.10 Chronic myeloid leukemia, BCR/ABL-positive, not having achieved remission (principal)
CPT/HCPCS: 36415; 80053; 81206; 85025

== ENCOUNTER 2024-11-24 08:01 | Outpatient (CLI) | payer MEDICARE, SELFPAY ==
--- NOTE | 2024-11-24 08:00 | RT.EKG_ITS ---
APPROVED REPORT Exam: Resting ECG Reason for Exam: PRE-OP Patient Location: O HR:65 bpm ECG Measurements Heart Rate 65 AXIS WA 182 P 5 QRSd 106 QRS -43 QT 429 T -11 QTc 447 Conclusion Sinus rhythm...normal P axis, V-rate 50- 99 Left anterior fascicular block...axis(240,-40), init forces inf
== END 2024-11-24 08:02 | disposition home or self-care (01) ==
PROVIDERS: PCP Family Medicine; Visit Provider Nurse Practitioner Adult Health
DX: Z01.818 Encounter for other preprocedural examination (principal)
CPT/HCPCS: 93005; 93010

== ENCOUNTER 2024-11-24 14:58 | Outpatient (CLI) | payer MEDICARE, SELFPAY ==
[2024-11-24 08:39] LABS: Abs Immature Grans 0.05 10^3/uL (0.0-0.06); HCT 42.8 % (40.0-50.0); HGB 14.6 g/dL (13.5-17.5); Immature Grans % 0.7 %; MCH 32.6 pg (27.0-33.0); MCHC 34.1 % (32.0-36.0); MCV 96 fL (80-95); MPV 9.6 fL (8.0-11.0); Platelet Count 180 10^3/uL (130-400); RBC 4.48 10^6/uL (4.36-5.78); RDW 13.0 % (11.8-14.1); RDW-SD 45.6 fL; WBC 7.63 10^3/uL (4.4-10.8)
[2024-11-24 09:09] LABS: ALT 19 U/L (16-63); AST 14 U/L (15-37); Albumin 3.5 g/dL (3.4-5.0); Alkaline Phosphatase 58 U/L (46-116); Anion Gap 8.7 mmol/L (3-11); BUN 16 mg/dL (7-18); Bilirubin, Total 0.7 mg/dL (0.2-1.0); CO2 26.3 mmol/L (21.0-32.0); Calcium 8.8 mg/dL (8.5-10.1); Chloride 111 mmol/L (98-107); Estimated GFR 64.65 (mL/min/1.73m2); Glucose 101 mg/dL (74-106); INR 1.0 (0.9-1.1); PTT Activated 24.3 sec (20.6-30.2); Potassium 4.0 mmol/L (3.5-5.1); Prothrombin Time 9.9 sec (9.1-11.1); Sodium 146 mmol/L (136-145); Total Protein 6.8 g/dL (6.4-8.2)
== END 2024-11-24 14:59 | disposition home or self-care (01) ==
LOC: LBO 14:58
PROVIDERS: PCP Family Medicine; Visit Provider Nurse Practitioner Adult Health
DX: Z01.818 Encounter for other preprocedural examination (principal); R79.1 Abnormal coagulation profile; Z01.812 Encounter for preprocedural laboratory examination
CPT/HCPCS: 36415; 80053; 85025; 85610; 85730; 93005

== ENCOUNTER 2025-03-10 08:11 | Outpatient (CLI) | payer MEDICARE, SELFPAY ==
[2025-03-10 12:19] LABS: Chloride 111 mmol/L (98-107); Potassium 3.7 mmol/L (3.5-5.1); Sodium 146 mmol/L (136-145)
[2025-03-10 12:21] LABS: CO2 24.4 mmol/L (20.0-31.0)
[2025-03-10 12:26] LABS: BUN 16 mg/dL (9-23); Calcium 8.7 mg/dL (8.3-10.6); Glucose 96 mg/dL (74-106); Total Protein 7.2 g/dL (5.7-8.2)
[2025-03-10 12:28] LABS: Albumin 4.2 g/dL (3.2-5.0); Alkaline Phosphatase 61 U/L (46-116); Bilirubin, Total 0.8 mg/dL (0.2-1.2)
[2025-03-10 12:29] LABS: ALT 14 U/L (10-49); AST 16 U/L (<34)
[2025-03-10 13:03] LABS: Anion Gap 10 mmol/L (3-11)
[2025-03-10 13:45] LABS: RBC 4.57 10^6/uL (4.36-5.78); WBC 11.40 10^3/uL (4.4-10.8)
[2025-03-10 13:46] LABS: HCT 43.2 % (40.0-50.0); HGB 14.6 g/dL (13.5-17.5); Immature Grans % 0.4 %; MCH 31.9 pg (27.0-33.0); MCHC 33.8 % (32.0-36.0); MCV 95 fL (80-95); MPV 10.0 fL (8.0-11.0); Platelet Count 193 10^3/uL (130-400); RDW 13.1 % (11.8-14.1); RDW-SD 45.2 fL
[2025-03-10 13:47] LABS: Abs Immature Grans 0.05 10^3/uL (0.0-0.06)
[2025-03-14 10:25] LABS: %BCR-ABL1 Not Detected; BCR-ABL1 Molecular Response Not Detected; BCR-ABL1 p210 FusionTranscript Not Detected (NotDetected); Indication for Study CML
== END 2025-03-10 08:12 | disposition home or self-care (01) ==
LOC: LBO 08:11
PROVIDERS: PCP Family Medicine; Visit Provider Nurse Practitioner Adult Health
DX: C92.10 Chronic myeloid leukemia, BCR/ABL-positive, not having achieved remission (principal)
CPT/HCPCS: 36415; 80053; 81206; 85025